=== PATIENT | male | born 1975 | race Caucasian/White ===

== ENCOUNTER 2022-08-25 01:03 | Emergency (ER) | payer MEDICAID, OTHER ==
[~2022-08-25] VITALS: Ht 165.1 cm; Wt 60.0 kg
[~2022-08-25 01:03] MED LIST: MIRT-111 PO; RISP2 PO
[2022-08-25 01:05] VITALS: O2SAT 96
[2022-08-25] MEDS ORDERED: IBUPROFEN 400MG TABLET PO ONE (01:45)
[2022-08-25] MEDS ORDERED: LORAZEPAM 2MG/ML CPJ IM ONE (02:15)
[2022-08-25] MEDS ORDERED: OLANZAPINE 10 MG/VIAL IM ONE (02:15)
[2022-08-25 03:47] LABS: CLARITY URINE CLEAR (CLEAR); COLOR URINE YELLOW (YELLOW); KETONES URINE NEGATIVE (NEGATIVE); LEUKOCYTE ESTERASE URINE NEGATIVE (NEGATIVE); NITRITE URINE NEGATIVE (NEGATIVE); OCCULT BLOOD URINE NEGATIVE (NEGATIVE); PH URINE 5.5 (4.5-8.0); PROTEIN URINE NEGATIVE (NEGATIVE)
[2022-08-25 03:49] LABS: BASOPHILS % 0.7 % (0.0-2.0); HEMATOCRIT. 38.6 % (42.0-52.0); HEMOGLOBIN. 13.5 g/dL (14.0-18.0); LYMPHOCYTES % 27.3 % (20.0-50.0); MEAN CORPUSCULAR HEMOGLOBIN 31.9 pg (28.0-32.0); MEAN CORPUSCULAR VOLUME 91.3 fL (80.0-94.0); MONOCYTES % 9.8 % (2.0-8.0); NEUTROPHILS % 61.2 % (40.0-76.0); PLATELET 331 x1000/uL (130-400); RED BLOOD CELL COUNT 4.23 mill/uL (4.7-6.1); RED CELL DISTRIBUTION WIDTH 13.3 % (11.6-14.6)
[2022-08-25 03:56] LABS: CHLORIDE 111 mEq/L (98-107)
[2022-08-25 03:59] LABS: *AMPHETAMINES SCREEN URINE NEGATIVE (NEGATIVE); *BARBITURATES SCREEN URINE NEGATIVE (NEGATIVE); *BENZODIAZEPINES SCREEN URINE NEGATIVE (NEGATIVE); *COCAINE SCREEN URINE NEGATIVE (NEGATIVE); CANNABINOID URINE SCREEN PRESUMTIVE POSITIVE (NEGATIVE); METHADONE URINE SCREEN NEGATIVE (NEGATIVE); OPIATES URINE SCREEN NEGATIVE (NEGATIVE); PHENCYCLIDINE URINE SCREEN NEGATIVE (NEGATIVE)
[2022-08-25 04:05] LABS: ETHANOL BLOOD < 10 mg/dL (-10)
[2022-08-25 06:00] VITALS: BP 109/70; PULSE 72; RESP 18; TEMP 98.3
[2022-08-25] MEDS ORDERED: RISPERIDONE 1MG TABLET PO SCH (12:00)
[2022-08-25] MEDS ORDERED: MIRTAZAPINE 30MG TABLET PO SCH (21:00)
== END 2022-08-25 12:54 | disposition home or self-care (01) ==
LOC: ER 01:03
DX: S02.2XXA Fracture of nasal bones, initial encounter for closed fracture (principal); R45.6 Violent behavior; F31.9 Bipolar disorder, unspecified; Y08.89XA Assault by other specified means, initial encounter; Y93.89 Activity, other specified; Y92.89 Other specified places as the place of occurrence of the external cause; Y99.8 Other external cause status
CPT/HCPCS: 80053; 80305; 81003; 80307; 80329; 80320; 85025; 36415; 70450; 70480; 96372; 99285; J3490; J2060; Z7610 ×2; G0480